=== PATIENT | female | born 1945 | race Caucasian/White ===

== ENCOUNTER 2021-11-10 13:33 | Inpatient (IN) ==
[2021-11-10 14:25] LABS: Basophils # 0.1 10*3/uL (0.0-0.2); Basophils % 0.5 % (0.0-0.8); Eosinophils # 0.3 10*3/uL (0.0-0.87); Eosinophils % 3.1 % (0.00-10.9); Hematocrit 40.4 VOL% (35.7-47.0); Hemoglobin 13.1 GM/DL (12.0-16.0); Immature Granulocytes % 0.2 %; Immature Granulocytes Absolute 0.02 #; Lymphocytes % 31.7 % (21.3-54.2); Mean Corpuscular HGB Conc 32.4 GM/DL (32-36); Mean Corpuscular Volume 93.5 FL (87-102); Mean Platelet Volume 9.1 FL (9.6-12.0); Monocytes % 11.4 % (1.7-12.7); Neutrophils % 53.1 % (38.7-73.9); Platelet Count 184 T/CUMM (130-400); Red Blood Count 4.32 MC/CUMM (3.8-5.5); Red Cell Distribution Width 13.3 % (9.3-17.3); White Blood Count 9.4 T/CUMM (4-12)
[2021-11-10 14:28] LABS: Bacteria,Urine Many /HPF (Few); Bilirubin,Urine Negative (Negative); Blood, Urine Negative (Negative); Glucose,Urine (UA) Negative (Negative); Hyaline Casts,Urine 1 /LPF (0-3); Ketones,Urine 5 mg/dL (Negative); Mucus,Urine Occasional /LPF (Occasional); Nitrite,Urine Negative (Negative); Protein,Urine Negative; RBC,Urine 4 /HPF (0-4); Squamous Epithelial Cell,Urine Occasional /HPF (0-10); Urine Appearance Slightly Hazy (Clear); Urine Color Amber (Yellow); Urine Specific Gravity 1.027 (1.001-1.035); Urine Urobilinogen < 2.0 EU/DL (<2.0)
[2021-11-10 14:58] LABS: PT Patient Result 10.8 SECS (10.5-12.0); Partial Thromboplastin Time 25.4 SECS (23.8-32.1)
[2021-11-10 15:01] LABS: Alanine Aminotransferase 22 U/L (13-56); Albumin 3.4 G/DL (3.4-5.0); Alkaline Phosphatase 55 U/L (45-117); Aspartate Amino Transferase 17 U/L (0-37); Blood Urea Nitrogen 18 MG/DL (7-18); Carbon Dioxide 24 MMOL/L (21-32); Estimated Glom Filtration Rate 54 ML/MIN; Glucose 100 MG/DL (74-106); Osmolality,Calculated 276.7 MOS/KG (273-304); Sodium 138 MMOL/L (136-145); Total Protein 7.7 G/DL (6.4-8.2)
[2021-11-10] MEDS ORDERED: ONDANSETRON 4 MG/2 ML VIAL IV STA (15:40)
[2021-11-10 16:14] LABS: Barbiturates Screen,Urine Negative (Negative); Benzodiazepines Screen,Urine Negative (Negative); Cannabinoid Screen,Urine Negative (Negative); Opiate Screen,Urine Positive (Negative); Phencyclidine Screen,Urine Negative (Negative)
[2021-11-10] MEDS ORDERED: DOCUSATE SODIUM 100 MG CAPSULE PO PRN (16:33)
[2021-11-10] MEDS ORDERED: GLUCAGON 1 MG VIAL IM PRN (16:33)
[2021-11-10] MEDS ORDERED: CALCIUM CARBONATE CHEW 500 MG TABLET PO PRN (16:33)
[2021-11-10] MEDS ORDERED: SIMETHICONE CHEW 125 MG TABLET PO PRN (16:33)
[2021-11-10] MEDS ORDERED: LABETALOL 20 MG/4 ML SYRINGE IV PRN (16:33)
[2021-11-10] MEDS ORDERED: ACETAMINOPHEN 325 MG TABLET PO PRN (16:33)
[2021-11-10] MEDS ORDERED: DEXTROSE 50% 25 GM/50 ML SYRINGE IV PRN (16:48)
[2021-11-10] MEDS: ASPIRIN 325 MG TABLET PO SCH (18:08)
[2021-11-10] MEDS: ENOXAPARIN 40 MG/0.4 ML SYRINGE SUBCUT SCH (18:08)
[2021-11-10] MEDS: PANTOPRAZOLE 40 MG TABLET PO SCH (18:08)
[2021-11-10] MEDS: LACTATED RINGERS 1,000 ML IV SCH (18:08)
[2021-11-10] MEDS: CLOPIDOGREL 75 MG TABLET PO SCH (18:08)
[2021-11-10 18:29] LABS: Barbiturates Screen,Urine Negative (Negative); Benzodiazepines Screen,Urine Negative (Negative); Cannabinoid Screen,Urine Negative (Negative); Opiate Screen,Urine Positive (Negative); Phencyclidine Screen,Urine Negative (Negative)
[2021-11-10] MEDS ORDERED: ROSUVASTATIN 20 MG TABLET PO SCH (21:00)
[2021-11-10] MEDS: ASCORBIC ACID 500 MG TABLET PO SCH (21:58)
[2021-11-10] MEDS: LOSARTAN 50 MG TABLET PO SCH (21:58)
[2021-11-10] MEDS: DOXAZOSIN 4 MG TABLET PO SCH (21:58)
[2021-11-11] MEDS: ONDANSETRON 4 MG/2 ML VIAL IV PRN (02:36)
[2021-11-11 04:20] LABS: Calcium 8.7 MG/DL (8.5-10.1); Osmolality,Calculated 273.8 MOS/KG (273-304); Potassium 4.3 MMOL/L (3.5-5.1); Risk Ratio 3.86; VLDL Cholesterol 80.6 MG/DL
[2021-11-11] MEDS: ALPRAZolam 0.5 MG TABLET PO PRN (04:31)
[2021-11-11] MEDS: PANTOPRAZOLE 40 MG TABLET PO SCH ×2 (04:35→16:36)
[2021-11-11] MEDS: LACTATED RINGERS 1,000 ML IV SCH ×2 (06:30→19:04)
[2021-11-11] MEDS: DOXAZOSIN 4 MG TABLET PO SCH (09:00)
[2021-11-11] MEDS: CLOPIDOGREL 75 MG TABLET PO SCH (09:00)
[2021-11-11] MEDS: atenoloL 50 MG TABLET PO SCH (09:00)
[2021-11-11] MEDS: LOSARTAN 50 MG TABLET PO SCH (09:00)
[2021-11-11] MEDS: ASCORBIC ACID 500 MG TABLET PO SCH ×2 (09:00→21:21)
[2021-11-11] MEDS ORDERED: CHOLECALCIFEROL 5,000 UNIT TABLET PO SCH (09:00)
[2021-11-11] MEDS ORDERED: ePHEDrine 50 MG/ML VIAL ONE (09:34)
[2021-11-11] MEDS ORDERED: PHENYLEPHRINE 1 MG/10 ML SYRINGE IV ONE (09:34)
[2021-11-11] MEDS ORDERED: ETOMIDATE 40 MG/20 ML VIAL IV ONE (09:34)
[2021-11-11] MEDS ORDERED: propofoL 200 MG/20 ML VIAL IV ONE (09:34)
[2021-11-11] MEDS ORDERED: LIDOCAINE 2% 5 ML VIAL ONE (09:34)
[2021-11-11] MEDS: OMEGA 3 ACID ETHYL ESTERS 1 GM CAPSULE PO SCH ×2 (13:06→21:21)
[2021-11-11] MEDS: FINASTERIDE 5 MG TABLET PO SCH (13:08)
[2021-11-11] MEDS: ASPIRIN 325 MG TABLET PO SCH (14:51)
[2021-11-11] MEDS ORDERED: INFLUENZA VIRUS VACCINE 0.5 ML SYRINGE IM ONE (15:10)
[2021-11-11] MEDS: ENOXAPARIN 40 MG/0.4 ML SYRINGE SUBCUT SCH (16:36)
[2021-11-11] MEDS: ROSUVASTATIN 20 MG TABLET PO SCH (21:21)
[2021-11-11] MEDS: CHOLECALCIFEROL 5,000 UNIT TABLET PO SCH (21:21)
[2021-11-12] MEDS: DOXAZOSIN 4 MG TABLET PO SCH ×3 (00:42→20:44)
[2021-11-12] MEDS: LOSARTAN 50 MG TABLET PO SCH ×3 (00:42→20:44)
[2021-11-12] MEDS: PANTOPRAZOLE 40 MG TABLET PO SCH ×2 (03:30→17:32)
[2021-11-12 05:01] LABS: Basophils % 0.6 % (0.0-0.8); Eosinophils # 0.2 10*3/uL (0.0-0.87); Eosinophils % 3.8 % (0.00-10.9); Hematocrit 36.1 VOL% (35.7-47.0); Hemoglobin 11.4 GM/DL (12.0-16.0); Immature Granulocytes % 0.3 %; Immature Granulocytes Absolute 0.02 #; Lymphocytes % 31.4 % (21.3-54.2); Mean Corpuscular HGB Conc 31.6 GM/DL (32-36); Mean Corpuscular Volume 93.8 FL (87-102); Mean Platelet Volume 9.3 FL (9.6-12.0); Monocytes % 12.2 % (1.7-12.7); Neutrophils % 51.7 % (38.7-73.9); Platelet Count 152 T/CUMM (130-400); Red Blood Count 3.85 MC/CUMM (3.8-5.5); Red Cell Distribution Width 13.2 % (9.3-17.3); White Blood Count 6.4 T/CUMM (4-12)
[2021-11-12 05:47] LABS: Calcium 8.7 MG/DL (8.5-10.1); Osmolality,Calculated 277.5 MOS/KG (273-304); Potassium 4.3 MMOL/L (3.5-5.1)
[2021-11-12] MEDS: OMEGA 3 ACID ETHYL ESTERS 1 GM CAPSULE PO SCH ×2 (08:58→20:44)
[2021-11-12] MEDS ORDERED: CONJUGATED ESTROGENS 1.25 MG PO SCH (09:00)
[2021-11-12] MEDS: ASCORBIC ACID 500 MG TABLET PO SCH ×2 (09:00→20:44)
[2021-11-12] MEDS: CHOLECALCIFEROL 5,000 UNIT TABLET PO SCH ×2 (09:00→20:44)
[2021-11-12] MEDS: atenoloL 50 MG TABLET PO SCH (09:02)
[2021-11-12] MEDS: CLOPIDOGREL 75 MG TABLET PO SCH (09:02)
[2021-11-12] MEDS: FINASTERIDE 5 MG TABLET PO SCH (09:02)
[2021-11-12] MEDS: LACTATED RINGERS 1,000 ML IV SCH ×3 (10:23→21:45)
[2021-11-12] MEDS: ONDANSETRON 4 MG/2 ML VIAL IV PRN (15:09)
[2021-11-12] MEDS: ASPIRIN 325 MG TABLET PO SCH (15:10)
[2021-11-12] MEDS: ENOXAPARIN 40 MG/0.4 ML SYRINGE SUBCUT SCH (17:32)
[2021-11-12] MEDS: ROSUVASTATIN 20 MG TABLET PO SCH (20:43)
[2021-11-12] MEDS: ALPRAZolam 0.5 MG TABLET PO PRN (20:44)
[2021-11-13 05:59] LABS: Basophils # 0.1 10*3/uL (0.0-0.2); Basophils % 0.9 % (0.0-0.8); Eosinophils # 0.2 10*3/uL (0.0-0.87); Hematocrit 38.8 VOL% (35.7-47.0); Hemoglobin 12.6 GM/DL (12.0-16.0); Immature Granulocytes % 0.3 %; Immature Granulocytes Absolute 0.02 #; Lymphocytes # 2.3 10*3/uL (1.4-4.0); Mean Corpuscular HGB Conc 32.5 GM/DL (32-36); Mean Corpuscular Volume 92.4 FL (87-102); Monocytes % 11.3 % (1.7-12.7); Neutrophils % 51.5 % (38.7-73.9); Platelet Count 170 T/CUMM (130-400)
[2021-11-13 06:18] LABS: Calcium 8.8 MG/DL (8.5-10.1); Potassium 3.9 MMOL/L (3.5-5.1)
[2021-11-13 12:03] VITALS: BP 137/58
[2021-11-13] MEDS: OMEGA 3 ACID ETHYL ESTERS 1 GM CAPSULE PO SCH (12:05)
[2021-11-13] MEDS: atenoloL 50 MG TABLET PO SCH (12:05)
[2021-11-13] MEDS: CLOPIDOGREL 75 MG TABLET PO SCH (12:05)
[2021-11-13] MEDS: CHOLECALCIFEROL 5,000 UNIT TABLET PO SCH (12:05)
[2021-11-13] MEDS: LOSARTAN 50 MG TABLET PO SCH (12:05)
[2021-11-13] MEDS: DOXAZOSIN 4 MG TABLET PO SCH (12:05)
[2021-11-13] MEDS: ASCORBIC ACID 500 MG TABLET PO SCH (12:05)
[2021-11-13] MEDS: ASPIRIN 325 MG TABLET PO SCH (12:05)
[2021-11-13] MEDS: PANTOPRAZOLE 40 MG TABLET PO SCH (12:05)
[2021-11-13] MEDS: FINASTERIDE 5 MG TABLET PO SCH (12:05)
== END 2021-11-13 15:02 | disposition home or self-care (01) | DRG 65 ==
LOC: N.ED 13:33 → N.EDINP 16:33 → SUATTDRO 16:33 → N.TELEN 11-11 13:04
PROVIDERS: ADMIT Internal Medicine; ATTEND Hospitalist